=== PATIENT | female | born 1990 | race African-American/Black ===

== ENCOUNTER 2018-05-26 21:48 | Emergency (ER) | payer BC ==
[~2018-05-26] VITALS: Ht 157.5 cm; Wt 111.4 kg
[2018-05-26 21:52] VITALS: BP 134/79
--- NOTE | 2018-05-26 23:55 | NUR ---
PT TO ER BED 1
--- NOTE | 2018-05-27 00:04 | NUR ---
PT SENT TO XRAY WITH TECH
--- NOTE | 2018-05-27 00:11 | NUR ---
PT RETURN FROM XRAY
--- NOTE | 2018-05-27 00:15 | NUR ---
PT BIBA C/O SOB/CHEST PAIN AND ANXIETY X 3-4 DAYS. PT DENIES N/V/D; SKIN IS INTACT, PINK/WARM/DRY; AAOX4, PERRL, WITH EVEN AND STEADY GAIT; LUNGS CLEAR BL, BREATHING UNLABORED; HR EVEN AND REGULAR, BL PERIPHERAL PULSES PRESENT; BS ACTIVE X4, NO TENDERNESS TO PALPATION. PT DENIES ANY FEVER, SOB, OR COUGH AT THIS TIME; PT STATES 2/10 PAIN AT THIS TIME; VSS; PATIENT POSITIONED FOR COMFORT; HOB ELEVATED; BEDRAILS UP X2; BED DOWN.
--- NOTE | 2018-05-27 00:16 | NUR ---
PT BACK FROM XRAY
--- NOTE | 2018-05-27 00:33 | NUR ---
REPORT GIVEN TO LILIANA
[2018-05-27 00:37] LABS: BASOPHILS # (AUTO) 0.1 K/uL (0.00-0.22); BASOPHILS % (AUTO) 0.8 % (0.0-2.0); EOSINOPHILS # (AUTO) 0.2 K/uL (0-0.4); EOSINOPHILS % (AUTO) 1.5 % (0.0-4.0); HEMATOCRIT 39.3 % (36-48); HEMOGLOBIN 12.5 g/dL (12.0-16.0); LYMPHOCYTES % (AUTO) 30.3 % (20.5-51.1); MEAN CORPUSCULAR HEMOGLOBIN 27 pg (27-31); MEAN CORPUSCULAR HGB CONC 32 g/dL (33-37); MEAN CORPUSCULAR VOLUME 83.5 fL (80-94); MONOCYTES # (AUTO) 0.8 K/uL (0.8-1.0); NEUTROPHILS # (AUTO) 8.2 K/uL (1.8-7.7); NEUTROPHILS % (AUTO) 61.4 % (42.2-75.2); PLATELET COUNT (AUTO) 312 K/uL (140-450); RED BLOOD CELL COUNT(AUTO) 4.71 MIL/uL (4.20-5.40); RED CELL DISTRIBUTION WIDTH 15.3 % (11.6-13.7); WHITE BLOOD COUNT (AUTO) 13.3 K/uL (4.8-10.8)
[2018-05-27 00:48] LABS: ANION GAP 14.1 (8-16); CREATININE 0.9 mg/dL (0.6-1.3); POTASSIUM 4.1 mmol/L (3.5-5.1)
[2018-05-27 00:54] LABS: ALBUMIN 3.6 g/dL (3.4-5.0); TOTAL BILIRUBIN 0.4 mg/dL (0.0-1.0)
--- NOTE | 2018-05-27 01:06 | NUR ---
Dr. Vincent evaluating patient at bedside.
[2018-05-27] MEDS ORDERED: IBUPROFEN 800 MG TAB PO ONE (01:20)
[2018-05-27 01:35] VITALS: BP 128/74
== END 2018-05-27 01:35 | disposition home or self-care (01) ==
LOC: MED 21:48
DX: R07.89 Other chest pain (principal)
CPT/HCPCS: 36415; 71046; 80053; 81025; 84484; 85025; 93005; 99283; 99284